=== PATIENT | female | born 1950 | race Caucasian/White ===

== ENCOUNTER → 2024-01-13 | Outpatient (CLI) | payer MEDICARE, MEDICAID ==
[~2024-01-13] MED LIST: CLON0.5T2 PO; CYCL-1 PO; CYCL1DRO EACHEYE; DEXL60CA3 PO; ESZO3TAB44 PO; GUAI200T5 PO; IBUP200C5 PO; KETO5DRO40 LEFTEYE; OLME20TA74 PO; PRED5DRO7 LEFTEYE
== END | disposition home or self-care (01) ==
LOC: RAD 16:07
PROVIDERS: ATTEND Internal Medicine Interventional Cardiology
DX: J84.9 Interstitial pulmonary disease, unspecified (principal); I34.1 Nonrheumatic mitral (valve) prolapse; I10 Essential (primary) hypertension; I70.0 Atherosclerosis of aorta; R06.02 Shortness of breath; R09.89 Other specified symptoms and signs involving the circulatory and respiratory systems
CPT/HCPCS: 71046